=== PATIENT | female | born 1955 | race African-American/Black ===

== ENCOUNTER → 2017-02-25 | Outpatient (CLI) | payer OTHER ==
[~2017-02-25] MED LIST: CELEBREX PO; FERROUS SULFATE PO; FLEXERIL PO; HCTZ PO; LORCET 10/650 T1 TAB PO; OXYIR5 MG PO; TEMAZEPAM PO; ZESTORETIC 20/21 TAB PO
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
== END | disposition home or self-care (01) ==
LOC: SMRI 11:35
DX: M25.511 Pain in right shoulder (principal); M65.811 Other synovitis and tenosynovitis, right shoulder; M19.011 Primary osteoarthritis, right shoulder; M94.211 Chondromalacia, right shoulder; M75.51 Bursitis of right shoulder; M62.511 Muscle wasting and atrophy, not elsewhere classified, right shoulder
CPT/HCPCS: 73221